=== PATIENT | female | born 1990 | race Caucasian/White ===

== ENCOUNTER 2022-02-09 09:43 | Emergency (ER) | payer OTHER ==
[~2022-02-09] VITALS: Ht 167.6 cm; Wt 56.7 kg
[2022-02-09 11:43] VITALS: BP 118/72
== END 2022-02-09 11:48 | disposition home or self-care (01) ==
LOC: ER 09:50
DX: O98.512 Other viral diseases complicating pregnancy, second trimester (principal); U07.1 COVID-19; Z3A.23 23 weeks gestation of pregnancy
CPT/HCPCS: 71045; 99282; U0002